=== PATIENT | female | born 1950 | race Caucasian/White ===

== ENCOUNTER → 2017-10-13 21:07 | Outpatient (CLI) | payer OTHER | END | disposition home or self-care (01) | LOC: D.MAMMO 08-22 15:00 | DX: Z12.31 Encounter for screening mammogram for malignant neoplasm of breast (principal) ==

== ENCOUNTER → 2018-12-27 16:40 | Outpatient (CLI) | payer OTHER | END | disposition home or self-care (01) | LOC: D.MAMMO 16:00 | PROVIDERS: ATTEND Nurse Practitioner Family | DX: Z12.31 Encounter for screening mammogram for malignant neoplasm of breast (principal) ==